=== PATIENT | male | born 1950 | race Caucasian/White ===

== ENCOUNTER 2016-04-30 09:34 | Emergency (ER) | payer SELFPAY ==
[2016-04-30] MEDS ORDERED: PREDNISONE 20 MG TABLET PO ONE (10:09)
[2016-04-30] MEDS ORDERED: KETOROLAC TROMETHAMINE 60 MG/2 ML SDV IM ONE (10:09)
[2016-04-30] MEDS ORDERED: LIDOCAINE 5% (700 MG) TRANSDERMAL ADH..PATCH TP ONE (11:45)
--- NOTE | 2016-04-30 12:12 | ER Document Report ---
ED General - General Chief Complaint: Hand Pain Stated Complaint: RIGHT HAND PAIN TRAVEL OUTSIDE OF THE [place] IN LAST 30 DAYS: No - HPI Patient complains to provider of: right wrist pain Notes: Patient coming in for severe right this pain going on for the last 24 hours. Patient states last few days been doing some increased heavy lifting. Patient states he has a history of carpal tunnel however pain is different his carvedilol in the past. Denies fevers chills nausea by denies any trauma denies any other injuries. - Related Data Allergies/Adverse Reactions: No Known Allergies Allergy (Verified 04/30/16 09:38) Past Medical History - Social History Smoking Status: Unknown if Ever Smoked Chew tobacco use (# tins/day): No Frequency of alcohol use: Heavy Drug Abuse: None Family History: Reviewed & Not Pertinent Patient has suicidal ideation: No Patient has homicidal ideation: No Renal/ Medical History: Denies: Hx Peritoneal Dialysis Review of Systems - Review of Systems Constitutional: No symptoms reported EENT: No symptoms reported Cardiovascular: No symptoms reported Respiratory: No symptoms reported Gastrointestinal: No symptoms reported Genitourinary: No symptoms reported Male Genitourinary: No symptoms reported Musculoskeletal: Other - Wrist pain Skin: No symptoms reported Hematologic/Lymphatic: No symptoms reported Neurological/Psychological: No symptoms reported Physical Exam - Vital signs Vitals: Temp Pulse Resp BP Pulse Ox 97.9 F 99 18 147/65 H 95 04/30/16 09:40 04/30/16 09:40 04/30/16 09:40 04/30/16 09:40 04/30/16 09:40 Interpretation: Normal - General General appearance: Appears well, Alert - HEENT Head: Normocephalic, Atraumatic Eyes: Normal Pupils: PERRL - Respiratory Respiratory status: No respiratory distress Chest status: Nontender Breath sounds: Normal Chest palpation: Normal - Cardiovascular Rhythm: Regular Heart sounds: Normal auscultation Murmur: No - Abdominal Inspection: Normal Distension: No distension Bowel sounds: Normal Tenderness: Nontender Organomegaly: No organomegaly - Back Back: Normal, Nontender - Extremities General upper extremity: Tender, Normal color, Normal temperature, Other - Patient with decreased range of motion of the right wrist there is some swelling along the dorsum of the risk mid wrist. Patient is has no tenderness of the snuffbox range of motion is decreased due to pain. Patient does have range of motion of his digits capillary refill is intact sensation is intact distal to the injury. Left wrist and other extremity is unaffected General lower extremity: Normal inspection, Nontender, Normal color, Normal ROM , Normal temperature, Normal weight bearing. No: Jose's sign - Neurological Neuro grossly intact: Yes Cognition: Normal Orientation: AAOx4 Ping Coma Scale Eye Opening: Spontaneous [place] Coma Scale Verbal: Oriented [place] Coma Scale Motor: Obeys Commands [place] Coma Scale Total: 15 Speech: Normal Motor strength normal: LUE, RUE, LLE, RLE Sensory: Normal - Psychological Associated symptoms: Normal affect, Normal mood - Skin Skin Temperature: Warm Skin Moisture: Dry Skin Color: Normal Course - Re-evaluation Re-evalutation: 04/30/16 15:41 X-ray reveal possible laxity of ligaments due to gapping between some of the carpal bones. Patient was placed in a volar splint pain medication will be given. Patient will be discharged home. - Vital Signs Vital signs: Temp Pulse Resp BP Pulse Ox 98.4 F 86 18 153/71 H 97 04/30/16 12:11 04/30/16 12:11 04/30/16 12:11 04/30/16 12:11 04/30/16 12:11 Procedures - Immobilization Right Wrist Immobilizer type: Volar splint Performed by: PCT Post-Proc Neuro Vasc Exam: Normal Alignment checked and good: No Discharge - Discharge Clinical Impression: Wrist sprain Qualifiers: Encounter type: initial encounter Laterality: right Qualified Code(s): S63.501A - Unspecified sprain of right wrist, initial encounter Condition: Good Disposition: HOME, SELF-CARE Instructions: Ice Packs ([facility]), Oral Narcotic Medication ([facility]), Wrist Sprain ( [facility]) Additional Instructions: Your x-ray today shows signs of possible ligamentous injury to your wrist possible wrist sprain. Will place you in a splint you may apply Lidoderm patch as needed for pain control take medication for pain control Tylenol and Motrin . Take prescribed pain medication for severe pain. Return to the ER symptoms worsen. Follow-up with hand surgeon Prescriptions: Lidocaine [Lidoderm 5% (700 mg) Transdermal Patch] 1 patch TP DAILY #30 adh..patch Oxycodone HCl 5 mg PO Q6 #20 tablet Referrals: ABDULAZIZ FOSS, [ACTIVE STAFF] - Follow up as needed
[2016-04-30 12:30] VITALS: BP 153/71
== END 2016-04-30 12:15 | disposition home or self-care (01) ==
LOC: ER 09:34
DX: S63.501A Unspecified sprain of right wrist, initial encounter (principal); X58.XXXA Exposure to other specified factors, initial encounter
CPT/HCPCS: 99283; 96372; 73110; L3984; J1885; J7512